=== PATIENT | female | born 1995 | race Caucasian/White ===

== ENCOUNTER → 2016-12-01 | Outpatient (CLI) | payer BC ==
[~2016-12-01] MED LIST: AMITRIPTYLINE H10 M1 PO; FIORICET 325 MG1 TA1 PO; LEXAPRO 10MG10 MG PO; MAXALT10 MG PO; PHENERGAN 25 TA25 MG PO; RELAFEN750 MG PO; TRI-SPRINTEC 281 TAB PO; ULTRAM 50MG TAB50 MG PO; ZYRTEC 10MG10 MG PO; [UNRECOGNIZED DRUG - CODE] NS
[2016-12-01 09:37] LABS: BASO % 0.4 % (0.0-2.0); EOS # 0.1 (0.0-0.7); GRAN # 4.2 (1.4-6.5); GRAN % 60.4 % (42.2-75.2); HEMATOCRIT 38.1 % (37.0-47.0); HEMOGLOBIN 12.9 g/dl (12.5-16.0); LYMPH # 2.1 (1.2-3.4); LYMPH % 30.4 % (20.0-51.0); MEAN CELL VOLUME 88 fl (80.0-100.0); MEAN CORPUSCULAR HEMOGLOBIN 30 pg (27.0-31.0); MEAN CORPUSCULAR HGB CONC 34 g/dl (33.0-37.0); MEAN PLATELET VOLUME 11.1 fl (7.4-10.4); MONO # 0.5 (0.1-0.6); MONO % 6.5 % (1.7-9.3); PLATELET COUNT 235 K/mm3 (130-400); RED BLOOD COUNT 4.33 M/mm3 (4.10-5.30); REDCELL DISTRIBUTION WIDTH-CV 11.7 % (11.5-14.5)
[2016-12-01 09:53] LABS: ADJUSTED CALCIUM 9.2 mg/dL (8.4-10.2); ALBUMIN 3.9 gm/dL (3.5-5.0); BILIRUBIN,TOTAL 0.7 mg/dL (0.0-1.0); C-REACTIVE PROTEIN 1.7 mg/dL (0.0-0.9); CALCIUM 9.1 mg/dL (8.4-10.2); CREATININE, serum 0.68 mg/dL (0.52-1.25); POTASSIUM 3.8 mmol/L (3.4-5.0)
[2016-12-01 10:33] LABS: ERYTHROCYTE SEDIMENTATION RATE 12 mm/hr (0-20)
== END ==
LOC: COL.RAD 08:55 → COL.LAB 08:55
PROVIDERS: Family Medicine
DX: R10.84 Generalized abdominal pain (principal)

== ENCOUNTER 2016-12-02 15:37 | Emergency (ER) | payer BC ==
[~2016-12-02] VITALS: Ht 157.5 cm; Wt 106.8 kg
[~2016-12-02 15:37] MED LIST changes: -ULTRAM 50MG TAB50 MG PO
[2016-12-02 15:39] VITALS: BP 152/99; TEMP 99
[2016-12-02 16:49] LABS: BASO % 0.2 % (0.0-2.0); EOS # 0.1 (0.0-0.7); EOS % 1.2 % (0-4.0); GRAN % 63.5 % (42.2-75.2); HEMATOCRIT 39.7 % (37.0-47.0); HEMOGLOBIN 13.4 g/dl (12.5-16.0); LYMPH # 2.8 (1.2-3.4); LYMPH % 29.2 % (20.0-51.0); MEAN CELL VOLUME 89 fl (80.0-100.0); MEAN CORPUSCULAR HEMOGLOBIN 30 pg (27.0-31.0); MEAN CORPUSCULAR HGB CONC 34 g/dl (33.0-37.0); MEAN PLATELET VOLUME 10.9 fl (7.4-10.4); MONO # 0.5 (0.1-0.6); MONO % 5.7 % (1.7-9.3); PLATELET COUNT 281 K/mm3 (130-400); RED BLOOD COUNT 4.48 M/mm3 (4.10-5.30); REDCELL DISTRIBUTION WIDTH-CV 11.7 % (11.5-14.5); WHITE BLOOD COUNT 9.4 K/mm3 (4.8-10.8)
[2016-12-02 17:04] LABS: ADJUSTED CALCIUM 9.2 mg/dL (8.4-10.2); ALBUMIN 4.1 gm/dL (3.5-5.0); BILIRUBIN,TOTAL 0.6 mg/dL (0.0-1.0); C-REACTIVE PROTEIN 1.5 mg/dL (0.0-0.9); CALCIUM 9.3 mg/dL (8.4-10.2); CREATININE, serum 0.74 mg/dL (0.52-1.25); POTASSIUM 3.9 mmol/L (3.4-5.0); TOTAL PROTEIN 7.6 gm/dL (6.4-8.2)
[2016-12-02] MEDS ORDERED: ULTRAM 50MG TAB50 MG PO (18:34)
[2016-12-02 18:50] VITALS: PULSE 84
== END 2016-12-02 18:51 | disposition home or self-care (01) ==
LOC: COL.ER 15:37
PROVIDERS: Nurse Practitioner
DX: R10.11 Right upper quadrant pain (principal); R10.31 Right lower quadrant pain; N39.0 Urinary tract infection, site not specified
CPT/HCPCS: Q9967

== ENCOUNTER → 2016-12-07 | Outpatient (CLI) | payer BC ==
[~2016-12-07] MED LIST changes: +ULTRAM 50MG TAB50 MG PO
== END ==
LOC: COL.RAD 11:59
DX: R10.84 Generalized abdominal pain (principal); R93.2 Abnormal findings on diagnostic imaging of liver and biliary tract
CPT/HCPCS: A9537; J2805

== ENCOUNTER 2018-08-30 01:51 | Emergency (ER) | payer BC ==
[~2018-08-30] VITALS: Ht 157.5 cm; Wt 106.8 kg
[2018-08-30 01:54] VITALS: TEMP 97.8
[2018-08-30 02:26] LABS: BASO % 0.4 % (0.0-2.0); EOS # 0.2 (0.0-0.7); EOS % 2.1 % (0-4.0); GRAN # 5.7 (1.4-6.5); GRAN % 56.7 % (42.2-75.2); HEMATOCRIT 37.7 % (37.0-47.0); HEMOGLOBIN 12.9 g/dl (12.5-16.0); LYMPH # 3.3 (1.2-3.4); LYMPH % 32.7 % (20.0-51.0); MEAN CELL VOLUME 88 fl (80.0-100.0); MEAN CORPUSCULAR HEMOGLOBIN 30 pg (27.0-31.0); MEAN CORPUSCULAR HGB CONC 34 g/dl (33.0-37.0); MEAN PLATELET VOLUME 10.8 fl (7.4-10.4); MONO # 0.8 (0.1-0.6); MONO % 7.9 % (1.7-9.3); PLATELET COUNT 234 K/mm3 (130-400); RED BLOOD COUNT 4.27 M/mm3 (4.10-5.30); REDCELL DISTRIBUTION WIDTH-CV 11.7 % (11.5-14.5)
[2018-08-30 02:37] LABS: ALANINE AMINOTRANSFERASE 47 U/L (9-52); ALBUMIN 3.7 gm/dL (3.5-5.0); ALKALINE PHOSPHATASE 60 U/L (50-136); ANION GAP 6 mmol/L (7-16); AST,SGOT 29 U/L (15-37); BILIRUBIN,TOTAL 0.2 mg/dL (0.0-1.0); BLOOD UREA NITROGEN 11 mg/dL (7-17); CALCIUM 8.3 mg/dL (8.4-10.2); CARBON DIOXIDE 26 mmol/L (22-30); CHLORIDE 108 mmol/L (98-107); GLUCOSE 121 mg/dL (74-106); POTASSIUM 3.7 mmol/L (3.4-5.0); SODIUM 140 mmol/L (137-145); TOTAL PROTEIN 6.7 gm/dL (6.4-8.2)
[2018-08-30 02:53] LABS: PROLACTIN 63.6 ng/mL (3.0-18.6)
[2018-08-30 02:54] LABS: HCG,QUANTITATIVE < 2 mIU/mL (0-5); TROPONIN-I < 0.012 ng/mL (0.000-0.034)
[2018-08-30 05:04] VITALS: BP 128/84; PULSE 93
== END 2018-08-30 05:06 | disposition home or self-care (01) ==
LOC: COL.ER 01:51
PROVIDERS: Emergency Medicine
DX: G40.909 Epilepsy, unspecified, not intractable, without status epilepticus (principal)
CPT/HCPCS: J2060; J7030

== ENCOUNTER → 2018-12-13 | Outpatient (CLI) | payer BC | LOC: COL.RAD 15:19 | DX: S93.402A Sprain of unspecified ligament of left ankle, initial encounter (principal) ==

== ENCOUNTER → 2019-04-26 | Outpatient (CLI) | payer BC | LOC: COL.RAD 13:30 | DX: K76.0 Fatty (change of) liver, not elsewhere classified (principal); Z90.49 Acquired absence of other specified parts of digestive tract | CPT/HCPCS: Q9967 ==

== ENCOUNTER 2019-09-12 16:21 | Emergency (ER) | payer BC ==
[~2019-09-12] VITALS: Ht 157.5 cm; Wt 111.4 kg
[2019-09-12 16:30] VITALS: TEMP 97.3
[2019-09-12 18:25] LABS: COLLECTION METHOD CLEAN CATCH
[2019-09-12 18:29] LABS: BASO # 0.1 (0.0-0.2); BASO % 0.5 % (0.0-2.0); EOS # 0.3 (0.0-0.7); EOS % 2.4 % (0-4.0); GRAN # 6.7 (1.4-6.5); GRAN % 64.6 % (42.2-75.2); HEMATOCRIT 39.8 % (37.0-47.0); HEMOGLOBIN 13.7 g/dl (12.5-16.0); LYMPH # 2.8 (1.2-3.4); LYMPH % 26.5 % (20.0-51.0); MEAN CELL VOLUME 88 fl (80.0-100.0); MEAN CORPUSCULAR HEMOGLOBIN 30 pg (27.0-31.0); MEAN CORPUSCULAR HGB CONC 34 g/dl (33.0-37.0); MEAN PLATELET VOLUME 10.9 fl (7.4-10.4); MONO # 0.6 (0.1-0.6); MONO % 5.8 % (1.7-9.3); PLATELET COUNT 237 K/mm3 (130-400); RED BLOOD COUNT 4.51 M/mm3 (4.10-5.30); REDCELL DISTRIBUTION WIDTH-CV 11.5 % (11.5-14.5)
[2019-09-12 18:32] LABS: MUCOUS Present /lpf; PH 6 (5-8); SQUAMOUS EPITHELIAL 0-2 /hpf; URINE APPEARANCE Clear; URINE BACTERIA None Seen /hpf; URINE BILIRUBIN Negative (NEGATIVE); URINE BLOOD Negative (NEGATIVE); URINE COLOR Yellow; URINE GLUCOSE Negative (NEGATIVE); URINE KETONE Trace (NEGATIVE); URINE LEUKOCYTE ESTERASE Negative (NEGATIVE); URINE NITRATE Negative (NEGATIVE); URINE PROTEIN(semi-quant) Negative (NEGATIVE); URINE RBC 0-2 /hpf; URINE UROBILINOGEN Negative (NEGATIVE)
[2019-09-12 18:53] LABS: ALBUMIN 4.4 gm/dL (3.5-5.0); BILIRUBIN,TOTAL 0.3 mg/dL (0.0-1.0); CREATININE, serum 0.7 (0.52-1.25); POTASSIUM 3.8 mmol/L (3.4-5.0); TOTAL PROTEIN 7.5 gm/dL (6.4-8.2)
[2019-09-12 21:49] VITALS: BP 129/79; PULSE 68
== END 2019-09-12 21:50 | disposition home or self-care (01) ==
LOC: COL.ER 16:21
PROVIDERS: Nurse Practitioner
DX: R10.2 Pelvic and perineal pain (principal); G43.909 Migraine, unspecified, not intractable, without status migrainosus
CPT/HCPCS: J1885; J2405; J7030

== ENCOUNTER 2021-08-19 20:28 | Emergency (ER) | payer BC ==
[~2021-08-19] VITALS: Ht 157.5 cm; Wt 119.5 kg
[2021-08-19 20:38] VITALS: TEMP 98.4
[2021-08-19 22:36] LABS: BASO # 0.1 K/mm3 (0.0-0.2); BASO % 0.5 % (0.0-2.0); EOS # 0.2 K/mm3 (0.0-0.7); EOS % 2.3 % (0-4.0); GRAN # 5.9 K/mm3 (1.4-6.5); GRAN % 58.9 % (42.2-75.2); HEMATOCRIT 41.4 % (37.0-47.0); HEMOGLOBIN 14.1 g/dl (12.5-16.0); LYMPH % 29.6 % (20.0-51.0); MEAN CELL VOLUME 89 fl (80.0-100.0); MEAN CORPUSCULAR HEMOGLOBIN 30 pg (27.0-31.0); MEAN CORPUSCULAR HGB CONC 34 g/dl (33.0-37.0); MEAN PLATELET VOLUME 10.7 fl (7.4-10.4); MONO # 0.9 K/mm3 (0.1-0.6); MONO % 8.5 % (1.7-9.3); PLATELET COUNT 246 K/mm3 (130-400); RED BLOOD COUNT 4.64 M/mm3 (4.10-5.30); REDCELL DISTRIBUTION WIDTH-CV 11.7 % (11.5-14.5)
[2021-08-19 22:55] LABS: ALANINE AMINOTRANSFERASE 24 U/L (0-55); ALBUMIN 4.2 gm/dL (3.5-5.0); ALKALINE PHOSPHATASE 72 U/L (0-750); ANION GAP 10 mmol/L (7-16); AST,SGOT 24 U/L (5-34); BILIRUBIN,TOTAL 0.4 mg/dL (0.2-1.2); BLOOD UREA NITROGEN 9 mg/dL (7-19); CALCIUM 9.4 mg/dL (8.4-10.2); CARBON DIOXIDE 25 mmol/L (22-29); CHLORIDE 106 mmol/L (98-107); CREATININE, serum 0.82 mg/dL (0.57-1.11); GLUCOSE 96 mg/dL (70-99); POTASSIUM 3.6 mmol/L (3.5-4.5); SODIUM 141 mmol/L (136-145); TOTAL PROTEIN 7.5 gm/dL (6.2-8.1)
[2021-08-19 23:03] LABS: TROPONIN-I < 0.010 ng/mL (0.00-0.033)
[2021-08-20 01:28] VITALS: BP 133/77; PULSE 69
== END 2021-08-20 01:35 | disposition home or self-care (01) ==
LOC: COL.ER 20:28
PROVIDERS: Personal Emergency Response Attendant
DX: R07.9 Chest pain, unspecified (principal); R51.9 Headache, unspecified; R56.9 Unspecified convulsions
CPT/HCPCS: J7030

== ENCOUNTER 2022-11-26 10:24 | Day surgery (SDC) | payer BC ==
[~2022-11-26] VITALS: Ht 157.5 cm; Wt 121.4 kg
[2022-11-26] VITALS (13 sets, daily range): BP systolic 110–142; BP diastolic 57–94; PULSE 82–104; TEMP 97.9–99
[2022-11-26] MEDS ORDERED: CLARITIN 1010 MG/TAB PO (11:38)
[2022-11-26] MEDS ORDERED: LYLEQ0.35 MG PO (11:40)
[2022-11-26] MEDS ORDERED: NEURONTIN600 MG/TAB PO (11:41)
[2022-11-26] MEDS ORDERED: TRIAMCINOLONE A15 G1 TP (11:42)
[2022-11-26] MEDS ORDERED: MIDOL COMPLETE1 EACH PO (11:43)
[2022-11-26] MEDS ORDERED: TEMOVATE30CR TOP (11:44)
[2022-11-26] MEDS ORDERED: NURTEC ODT75 MG PO (11:45)
[2022-11-26] MEDS ORDERED: WELLBUTRIN XL150 MG PO (11:46)
[2022-11-26] MEDS ORDERED: SPRIX ×2 (11:48→11:50)
[2022-11-26] MEDS ORDERED: ESTRACE 1MG1 MG/TAB PO (12:17)
--- NOTE | 2022-11-26 20:59 | NUR ---
SHIFT REPORT FROM LISETTE SWANSON. PATIENT IN BED ON ROOM ENTRY. ALERT AND ORIENTED. SITTING UP ON THE PHONE. STATES PAIN IS CONTROLLED ON CURRENT REGIMEN. HS MEDS PER EMAR. STATES SHE TOOK HER GABAPENTIN AT 1830 ALREADY. X4 ABD LAP SITES CDI AND OPEN TO AIR. SOIFA TO DD WITH CLEAR YELLOW URINE, DISCUSSED WITH PATIENT SOFIA REMOVAL IN AM AND PATIENT IN AGREEANCE. IVF TO L WRIST IV WITHOUT ISSUES. SCDS IN PLACE. DENIES ADDITIONAL NEEDS. CALL LIGHT IN REACH.
[2022-11-27 03:59] VITALS: BP 124/60; PULSE 96; TEMP 98.7
--- NOTE | 2022-11-27 04:53 | NUR ---
SOFIA DISCONTINUED PER ORDERS. 10 CC REMOVED FROM [facility]. CATHETER REMOVED WITH BALLOON INTACT. DENIES ADDITIONAL NEEDS.
[2022-11-27 04:54] VITALS: PULSE 96; TEMP 98.7
[2022-11-27 08:00] VITALS: BP 114/79; PULSE 88; TEMP 98.6
[2022-11-27 09:00] VITALS: PULSE 88; TEMP 98.6
--- NOTE | 2022-11-27 10:54 | NUR ---
DISCHARGE INSTRUCTIONS REVIEWED WITH PATIENT AND SPOUSE. BOTH VERBALIZED UNDERSTANDING. IV REMOVED AND DRESSING APPLIED, NO BLEEDING NOTED.
== END 2022-11-27 10:55 | disposition home or self-care (01) ==
LOC: SDCO 10:24 → SURG 15:55 → SDCO 11-27 10:55
DX: D25.2 Subserosal leiomyoma of uterus (principal); N83.02 Follicular cyst of left ovary; F17.210 Nicotine dependence, cigarettes, uncomplicated
CPT/HCPCS: OP; A4314; J0690; J1720; J1885; J2405; J2704; J2710; J3010; J7120

== ENCOUNTER → 2024-01-27 | Outpatient (CLI) | payer BC ==
[~2024-01-27] MED LIST changes: +CLARITIN 1010 MG/TAB PO; +ESTRACE 1MG1 MG/TAB PO; +Iohexol 300 - 100 ML VIAL IV ONE; +LYLEQ0.35 MG PO; +MIDOL COMPLETE1 EACH PO; +NEURONTIN600 MG/TAB PO; +NS 100 ML IV SCH; +NURTEC ODT75 MG PO; +SPRIX; +TEMOVATE30CR TOP; +TRIAMCINOLONE A15 G1 TP; +WELLBUTRIN XL150 MG PO
== END ==
LOC: COL.RAD 15:06
DX: R10.31 Right lower quadrant pain (principal)
CPT/HCPCS: Q9967

== ENCOUNTER 2024-08-02 12:36 | Emergency (ER) | payer BC ==
[~2024-08-02] VITALS: Ht 157.5 cm; Wt 116.4 kg
[~2024-08-02 12:36] MED LIST changes: -Iohexol 300 - 100 ML VIAL IV ONE; -NS 100 ML IV SCH
[2024-08-02 12:45] VITALS: TEMP 98.6
[2024-08-02] MEDS ORDERED: NS 1,000 ML IV ONE (13:15)
[2024-08-02] MEDS ORDERED: Ketorolac 30 MG/ML VIAL IV ONE (13:15)
[2024-08-02] MEDS ORDERED: Ondansetron 4 MG/2 ML VIAL IV ONE (13:15)
[2024-08-02 13:31] LABS: COLLECTION METHOD CLEAN CATCH
[2024-08-02 13:38] LABS: BASO % 0.7 % (0.0-2.0); EOS # 0.3 K/mm3 (0.0-0.7); EOS % 4.4 % (0.0-4.0); GRAN # 3.4 K/mm3 (1.4-6.5); GRAN % 56.2 % (42.2-75.2); HEMOGLOBIN 12.6 g/dl (12.5-16.0); LYMPH % 32.5 % (20.0-51.0); MEAN CELL VOLUME 89 fl (80.0-100.0); MEAN CORPUSCULAR HEMOGLOBIN 31 pg (27-31); MEAN CORPUSCULAR HGB CONC 34 g/dl (33.0-37.0); MONO # 0.4 K/mm3 (0.1-0.6); MONO % 5.9 % (1.7-9.3); PLATELET COUNT 196 K/mm3 (130-400); RED BLOOD COUNT 4.12 M/mm3 (4.10-5.30); REDCELL DISTRIBUTION WIDTH-CV 11.2 % (11.5-14.5)
[2024-08-02 13:39] LABS: HEMATOCRIT 36.8 % (37.0-47.0)
[2024-08-02 13:46] LABS: PH 6.5 (5.0-8.5); URINE APPEARANCE CLEAR (CLEAR/HAZY); URINE BLOOD NEGATIVE (NEGATIVE); URINE COLOR YELLOW (YELLOW); URINE GLUCOSE NEGATIVE (NEGATIVE); URINE KETONE NEGATIVE (NEGATIVE); URINE NITRATE NEGATIVE (NEGATIVE); URINE PROTEIN(semi-quant) NEGATIVE (NEGATIVE); URINE UROBILINOGEN 0.2 E.U/dL (0.2-1.0)
[2024-08-02 14:15] LABS: ALBUMIN 3.6 g/dL (3.5-5.0); BILIRUBIN,TOTAL 0.4 mg/dL (0.2-1.2); C-REACTIVE PROTEIN 1.07 mg/dL (0.00-0.50); CALCIUM 8.8 mg/dL (8.4-10.2); CREATININE, serum 0.77 mg/dL (0.57-1.11); POTASSIUM 3.8 mEq/L (3.5-4.5); TOTAL PROTEIN 6.6 g/dl (6.2-8.1)
[2024-08-02] MEDS ORDERED: Iohexol 300 - 100 ML VIAL IV ONE (15:08)
[2024-08-02] MEDS ORDERED: NS 100 ML IV SCH (15:08)
[2024-08-02] MEDS ORDERED: NORCO 325 MG-51 TAB PO (16:03)
[2024-08-02 16:30] VITALS: BP 140/85; PULSE 77
== END 2024-08-02 16:34 | disposition home or self-care (01) ==
LOC: COL.ER 12:36
PROVIDERS: Nurse Practitioner
DX: R10.31 Right lower quadrant pain (principal); R16.0 Hepatomegaly, not elsewhere classified
CPT/HCPCS: J1885; J2405; J7030; Q9967

== ENCOUNTER → 2024-08-24 | Outpatient (CLI) | payer BC ==
[~2024-08-24] MED LIST changes: +Gadoterate 20 ML VIAL IV ONE; +NORCO 325 MG-51 TAB PO
== END ==
LOC: COL.RAD 15:16
DX: K76.0 Fatty (change of) liver, not elsewhere classified (principal)
CPT/HCPCS: A9575